=== PATIENT | male | born 1960 | race Caucasian/White ===

== ENCOUNTER 2019-07-25 21:11 | Inpatient (IN) | payer SELFPAY ==
[2019-07-25] MEDS ORDERED: FUROSEMIDE 40 MG/4 ML VIAL ONE (22:08)
[2019-07-25 22:35] LABS: Absolute Lymphocytes (CBC) 2.2 K/uL (0.7-4.9); Basophils % 0.8 % (0-1.3); Hematocrit 45.1 % (39.6-49.0); MPV 8.5 fL (7.6-11.3); RBC Red Blood Cell Count 4.54 M/uL (4.33-5.43)
[2019-07-25 22:54] LABS: BUN Blood Urea Nitrogen 4 mg/dL (7-18); Bicarbonate 28 mmol/L (21-32); Glucose Level 93 mg/dL (74-106); NT PRO-BNP 368 pg/mL (<125); Potassium 4.1 mmol/L (3.5-5.1); Sodium Level 134 mmol/L (136-145)
--- NOTE | 2019-07-25 23:29 | EDPHYS ---
Physician Documentation [facility] Name: Cem Akhtar Jr Age: 59 yrs Sex: Male : 1960 Arrival Date: 07/25/2019 Time: 21:14 Bed 7 Private MD: ED Physician Abdulaziz Bar HPI: 07/24 21:50 This 59 yrs old Male presents to ER via Ambulatory with complaints of Leg rn Swelling, Feet Swelling, Drainage. 21:50 The patient presents with pain, swelling. The complaints affect the bilateral lower rn legs. Onset: The symptoms/episode began/occurred at an unknown time. Modifying factors: The symptoms are alleviated by nothing. the symptoms are aggravated by movement, weight bearing. Severity of symptoms: At their worst the symptoms were moderate, in the emergency department the symptoms are unchanged. The patient has experienced similar episodes in the past. Reports knows has CHF and afib, unable to take medication for months, no fever, swelling has gotten bad to where he cannot walk, is weeping now. No sob. . Historical: - Allergies: 21:32 PENICILLINS; ll1 - PMHx: 21:32 Hypertension; CHF; Atrial Fib; ll1 - Immunization history:: Adult Immunizations unknown. - Social history:: Smoking status: Patient denies any tobacco usage or history of. Patient uses alcohol, occasionally. only on a social basis. Patient/guardian denies using street drugs. - Family history:: not pertinent. - Hospitalizations: : No recent hospitalization is reported. ROS: 21:50 Constitutional: Negative for fever, chills, and weight loss, Eyes: Negative for injury, rn pain, redness, and discharge, Neck: Negative for injury, pain, and swelling, Cardiovascular: Negative for chest pain, palpitations, and edema, Respiratory: Negative for shortness of breath, cough, wheezing, and pleuritic chest pain, Abdomen/GI: Negative for abdominal pain, nausea, vomiting, diarrhea, and constipation, MS/Extremity: + leg swelling Skin: + drainage of leg wounds Neuro: Negative for headache, weakness, numbness, tingling, and seizure. Exam: 21:50 Constitutional: Overweight male, ambulatory, seems uncomfortable Head/Face: rn Normocephalic, atraumatic. Cardiovascular: Irregular rhythm, regular rate. Respiratory: No increased work of breathing, no retractions or nasal flaring. Abdomen/GI: soft, non-tender Skin: Warm, 3+ pitting edema bilateral lower ext, with clear transudative fluid MS/ Extremity: Pulses equal, no cyanosis. + equal and intact distal pulses Neuro: Awake and alert, GCS 15, oriented to person, place, time, and situation. Cranial nerves II-XII grossly intact. Motor strength 5/5 in all extremities. Sensory grossly intact. Cerebellar exam normal. Normal gait. 21:56 ECG was reviewed by the Attending Physician. rn Vital Signs: 21:31 BP 123 / 78; Pulse 88; Resp 19; Temp 97.8; Pulse Ox 99% ; Pain 10/10; ll1 22:09 BP 143 / 79; Pulse 79; Resp 15 S; Pulse Ox 98% on R/A; jd3 23:06 BP 110 / 57; Pulse 74; Resp 18 S; Pulse Ox 98% on R/A; jd3 07/25 00:10 BP 114 / 75; Pulse 97; Resp 18 S; Pulse Ox 99% on R/A; jd3 01:01 BP 101 / 64; Pulse 89; Resp 16 S; Pulse Ox 97% on R/A; jd3 MDM: 07/24 21:26 Patient medically screened. rn 23:26 Differential diagnosis: lymphedema, CHF. 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 Test interpretation: by ED physician or midlevel provider: plain radiologic studies, CXR with mild pulmonary edema. Counseling: I had a detailed discussion with the patient and/or guardian regarding: the historical points, exam findings, and any diagnostic results supporting the discharge/admit diagnosis, lab results, radiology results, the need for further work-up and treatment in the hospital. Response to treatment: There is no appreciated change of the patient's symptoms at this time. Admission orders: after a detailed discussion of the patient's condition and case, the admit orders are written by me. ED course: Pt admitted for CHF exacerbation, severe peripheral edema, unable to get medication at home. . 07/24 21:34 Order name: CBC with Diff; Complete Time: 23:02 rn 07/24 21:34 Order name: Basic Metabolic Panel; Complete Time: 23:02 rn 07/24 21:34 Order name: BNP; Complete Time: 23:02 rn 07/24 21:34 Order name: XRAY Chest (1 view) rn 07/24 21:35 Order name: Procalcitonin; Complete Time: 23:49 rn 07/24 21:34 Order name: IV Start; Complete Time: 22:26 rn 07/24 21:34 Order name: EKG; Complete Time: 21:36 rn 07/24 21:34 Order name: EKG - Nurse/Tech; Complete Time: 21:41 rn 07/25 01:22 Order name: EKG - Nurse/Tech; Complete Time: 01:22 sg EC:56 Rate is 87 beats/min. Rhythm is irregularly irregular. Left axis deviation noted. QRS rn is positive in lead I and negative in lead aVF. QRS interval is normal. QT interval is normal. No Q waves. T waves are Normal. No ST changes noted. Clinical impression: Atrial Fibrillation. Interpreted by me. Reviewed by me. Administered Medications: 22:37 Drug: Lasix 40 mg Route: IVP; Site: left antecubital; jd3 23:30 Follow up: Response: No adverse reaction jd3 Disposition: 07/25/19 23:28 Hospitalization ordered by John Oseguera for Inpatient Admission. Preliminary diagnosis are Unspecified combined systolic (congestive) and diastolic (congestive) heart failure, Edema, unspecified. - Bed requested for Telemetry/MedSurg (Inpatient). - Status is Inpatient Admission. jd3 - Condition is Stable. - Problem is an ongoing problem. - Symptoms are unchanged. Signatures: Dispatcher [employer] EDMS Augustine Bailey RN Abdulaziz Sanders MD MD rn Garcia, Cindy, RN RN cg Davies, Jonathon, RN RN jd3 Lewis, Lynsay, RN RN ll1 Corrections: (The following items were deleted from the chart) 07/25 00:52 07/24 23:28 Hospitalization Ordered by John Oseguera for Inpatient Admission. [place] Preliminary diagnosis is Unspecified combined systolic (congestive) and diastolic (congestive) heart failure; Edema, unspecified. Bed requested for Telemetry/MedSurg (Inpatient). Status is Inpatient Admission. Condition is Stable. Problem is an ongoing problem. Symptoms are unchanged. rn 07/25 01:26 00:52 07/25/2019 23:28 Hospitalization Ordered by John Oseguera for Inpatient jd3 Admission. Preliminary diagnosis is Unspecified combined systolic (congestive) and diastolic (congestive) heart failure; Edema, unspecified. Bed requested for Telemetry/MedSurg (Inpatient). Status is Inpatient Admission. Condition is Stable. Problem is an ongoing problem. Symptoms are unchanged. cg
--- NOTE | 2019-07-25 23:29 | ER ---
Nurse's Notes [facility] Name: Cem Akhtar Jr Age: 59 yrs Sex: Male : 1960 Arrival Date: 07/25/2019 Time: 21:14 Bed 7 Private MD: Diagnosis: Unspecified combined systolic (congestive) and diastolic (congestive) heart failure;Edema, unspecified Presentation: 07/24 21:31 Chief complaint: Patient states: Bilateral leg swelling and pain for 1 month. Out of ll1 all meds for 3 months, including CHF, heart, and blood thinner meds. Denies SOB/fever. Coronavirus screen: Proceed with normal triage. Patient denies a cough. Patient denies shortness of breath or difficulty breathing. Patient denies measured and/or subjective temperature greater than 100.4F prior to today's visit. Patient denies travel on a cruise ship or to a country the [facility] currently lists as an affected area. Patient denies contact with known and/or suspected case of COVID-19. Ebola Screen: Patient denies travel to an Ebola-affected area in the 21 days before illness onset. Initial Sepsis Screen: Does the patient meet any 2 criteria? No. Patient's initial sepsis screen is negative. Risk Assessment: Do you want to hurt yourself or someone else? Patient reports no desire to harm self or others. Onset of symptoms was June 23, 2019. 21:31 Method Of Arrival: Ambulatory ll1 21:31 Acuity: NOA 3 ll1 22:09 Initial Sepsis Screen: Does the patient have a suspected source of infection? No. jd3 Patient's initial sepsis screen is negative. Historical: - Allergies: 21:32 PENICILLINS; ll1 - PMHx: 21:32 Hypertension; CHF; Atrial Fib; ll1 - Immunization history:: Adult Immunizations unknown. - Social history:: Smoking status: Patient denies any tobacco usage or history of. Patient uses alcohol, occasionally. only on a social basis. Patient/guardian denies using street drugs. - Family history:: not pertinent. - Hospitalizations: : No recent hospitalization is reported. Screenin:09 Abuse screen: Denies threats or abuse. Nutritional screening: No deficits noted. jd3 Tuberculosis screening: No symptoms or risk factors identified. Fall Risk Ambulatory Aid- None/Bed Rest/Nurse Assist (0 pts). Gait- Normal/Bed Rest/Wheelchair (0 pts) Mental Status- Oriented to own ability (0 pts). Total Hernández Fall Scale indicates No Risk (0-24 pts). Assessment: 22:07 General: Appears in no apparent distress. uncomfortable, Behavior is calm, cooperative, jd3 appropriate for age. Pain: Complains of pain in right leg and left leg Quality of pain is described as sharp, stabbing. Neuro: Level of Consciousness is awake, alert, obeys commands, Oriented to person, place, time, situation. Cardiovascular: Denies chest pain, Heart tones present Capillary refill < 3 seconds Patient's skin is warm and dry. Rhythm is irregular. Respiratory: Airway is patent Respiratory effort is even, unlabored, Respiratory pattern is regular, symmetrical, Breath sounds are clear bilaterally. Denies cough, shortness of breath. GI: No signs and/or symptoms were reported involving the gastrointestinal system. : No signs and/or symptoms were reported regarding the genitourinary system. EENT: No signs and/or symptoms were reported regarding the EENT system. Derm: Skin is intact, Skin is dry, Skin is normal, Skin temperature is warm redness and swelling noted to MARCIE lower legs and feet. Musculoskeletal: Circulation, motion, and sensation intact. Range of motion: intact in all extremities, Swelling present in right foot, left foot, right leg and left leg. 23:06 Reassessment: Patient appears in no apparent distress at this time. No changes from jd3 previously documented assessment. Patient and/or family updated on plan of care and expected duration. Pain level reassessed. Patient is alert, oriented x 3, equal unlabored respirations, skin warm/dry/pink. 07/25 00:10 Reassessment: Patient appears in no apparent distress at this time. Patient and/or jd3 family updated on plan of care and expected duration. Pain level reassessed. Patient is alert, oriented x 3, equal unlabored respirations, skin warm/dry/pink. awaiting admission. 01:00 Reassessment: Patient appears in no apparent distress at this time. Patient and/or jd3 family updated on plan of care and expected duration. Pain level reassessed. Patient is alert, oriented x 3, equal unlabored respirations, skin warm/dry/pink. Vital Signs: 07/24 21:31 BP 123 / 78; Pulse 88; Resp 19; Temp 97.8; Pulse Ox 99% ; Pain 10/10; ll1 22:09 BP 143 / 79; Pulse 79; Resp 15 S; Pulse Ox 98% on R/A; jd3 23:06 BP 110 / 57; Pulse 74; Resp 18 S; Pulse Ox 98% on R/A; jd3 07/25 00:10 BP 114 / 75; Pulse 97; Resp 18 S; Pulse Ox 99% on R/A; jd3 01:01 BP 101 / 64; Pulse 89; Resp 16 S; Pulse Ox 97% on R/A; jd3 ED Course: 07/24 21:14 Patient arrived in ED. cf2 21:26 Abdulaziz Bar MD is Attending Physician. rn 21:32 Triage completed. ll1 21:33 Arm band placed on Patient placed in an exam room, on a stretcher. ll1 21:39 Rosendo Sepulveda RN is Primary Nurse. jd3 22:09 Patient has correct armband on for positive identification. Bed in low position. Call jd3 light in reach. Side rails up X 1. hall monitor on. Pulse ox on. NIBP on. 22:23 XRAY Chest (1 view) In Process Unspecified. EDMS 22:28 Inserted saline lock: 20 gauge in left antecubital area, using aseptic technique. Blood oe collected. 23:27 John Oseguera is Hospitalizing Provider. rn 07/25 01:12 No provider procedures requiring assistance completed. Patient admitted, IV remains in jd3 place. Administered Medications: 07/24 22:37 Drug: Lasix 40 mg Route: IVP; Site: left antecubital; jd3 23:30 Follow up: Response: No adverse reaction jd3 Output: 23:04 Urine: 1000ml (Voided); Total: 1000ml. jb4 Outcome: 23:28 Decision to Hospitalize by Provider. rn 07/25 01:12 Admitted to Med/surg accompanied by tech, via stretcher, room 209, with chart, Report jd3 called to Lizett PINA Condition: stable Instructed on the need for admit, Demonstrated understanding of instructions. 01:26 Patient left the ED. jd3 Signatures: Dispatcher [employer] EDMS Abdulaziz Bar MD MD rn Bryson, James, RN RN jb4 Philip López Jonathon, RN RN jd3 Nia Yousif cf2 Janeth Grant, RN RN ll1
--- NOTE | 2019-07-26 00:37 | P.HP ---
Certification for Inpatient Patient admitted to: Observation With expected LOS: <2 Midnights Practitioner: I am a practitioner with admitting privileges, knowledge of patient current condition, hospital course, and medical plan of care. Services: Services provided to patient in accordance with Admission requirements found in Title 42 Section 412.3 of the Code of Federal Regulations Patient History Date of Service: 07/26/19 Reason for admission: Bilateral lower extremity swelling History of Present Illness: 59-year-old gentleman with a history of atrial fibrillation, chronic leg edema presented emergency department with significant bilateral lower extremity swelling. Patient reports not taking his Lasix for about 4 years due to inability to afford his medications and lack of insurance. He has not seen any physicians for about 4 years now. He denied any shortness of breath or cough. He reports calf pain and difficulty ambulating due to the leg swellings. He denied any history of DVT. He denied any history of heart failure. He stated he moved here recently to get a job and he lives in his truck. Blood work in the ED is unremarkable it. Chest x-ray shows no CHF pattern. Patient is hospitalized for IV Lasix therapy. Allergies Penicillins Allergy (Severe, Verified 07/26/19 02:29) Anaphylaxis Home Medications: Furosemide 1 tab PO DAILY 07/26/19 Lisinopril [Zestril] 1 tab PO DAILY 07/26/19 Metoprolol Tartrate 1 tab PO BID 07/26/19 Potassium Chloride 1 tab PO BID 07/26/19 - Past Medical/Surgical History -: Atrial fibrillation -: Bilateral leg edema -: Ear surgery - Family History Family History: Reviewed- Non-Contributory (Patient was adopted) - Family History Father -: Heart disease - Social History Smoking Status: Never smoker Alcohol use: Yes CD- Drugs: No Review of Systems Other: Except as documented, all other systems reviewed and negative. Physical Examination - Physical Exam General: Alert, In no apparent distress, Oriented x3 HEENT: PERRLA, Mucous membr. moist/pink, EOMI, Sclerae nonicteric Neck: Supple, JVD not distended Respiratory: Clear to auscultation bilaterally, Normal air movement Cardiovascular: Normal S1 S2, Edema (Bilateral lower extremity), Irregular heart rate/rhythm Capillary refill: <2 Seconds Gastrointestinal: Normal bowel sounds, Soft and benign, Non-distended, No tenderness Musculoskeletal: Swelling (Bilateral legs) Integumentary: Erythema (Bilateral lower extremities) Neurological: Normal speech, Normal strength at 5/5 x4 extr - Studies Laboratory Data (last 24 hrs) 07/25/19 22:23: Sodium 134 L, Potassium 4.1, BUN 4 L, Creatinine 0.80, Glucose 93 07/25/19 22:23: WBC 7.0, Hgb 15.2, Hct 45.1, Plt Count 221 Assessment and Plan - Problems (Diagnosis) (1) Lymphedema of both lower extremities Current Visit: Yes Status: Acute (2) Edema of both lower extremities Current Visit: Yes Status: Acute (3) Chronic atrial fibrillation Current Visit: Yes Status: Acute - Plan Place under observation. Start IV Lasix Monitor intake and output Obtain venous Doppler of bilateral lower extremities to rule out DVT. Obtain echocardiogram. Patient may need lymphedema treatment as an outpatient. - Advance Directives Does patient have a Living Will: No Does patient have a Durable POA for Healthcare: No
[2019-07-26 01:35] VITALS: O2SAT 97
[2019-07-26 03:39] LABS: Urine Appearance CLEAR; Urine Bilirubin NEGATIVE (NEG); Urine Blood NEGATIVE (NEG); Urine Color YELLOW; Urine Glucose NEGATIVE (NEG); Urine Protein NEGATIVE (NEG); Urine Specific Gravity <=1.005 (1.005-1.030); Urine Urobilinogen 0.2 mg/dL (0.2-1.0)
[2019-07-26 03:40] LABS: Urine Microscopic Reflex NO UMIC
--- NOTE | 2019-07-26 07:48 | RAD REPORT ---
EXAM DESCRIPTION: Akhil Single View07/25/2019 10:21 pm CLINICAL HISTORY: Shortness breath COMPARISON: none FINDINGS: Minimal bilateral pulmonary opacities probably minimal interstitial pulmonary edema Heart is borderline enlarged
[2019-07-26] MEDS: FUROSEMIDE 40 MG/4 ML VIAL IV SCH ×2 (08:07→16:31)
[2019-07-26] MEDS: ENOXAPARIN 40 MG/0.4 ML SQ SCH (08:07)
--- NOTE | 2019-07-26 16:01 | RAD REPORT ---
EXAM DESCRIPTION: US - Extrem Venous W Compress Conner - 07/26/2019 3:57 pm CLINICAL HISTORY: Bilateral leg swelling COMPARISON: None. TECHNIQUE: Real-time sonographic evaluation of the bilateral lower extremity common femoral, superfi cial femoral, popliteal and posterior tibial veins was performed. FINDINGS: Normal compressibility, flow augmentation, phasic flow and spontaneous flow are identified in the left and right lower extremity common femoral, superficial femoral, popliteal and posterior t ibial veins. No intraluminal filling defects seen. IMPRESSION: No DVT in either lower extremity.
[2019-07-27 05:41] VITALS: BMI 34.1
[2019-07-27 06:33] LABS: BUN Blood Urea Nitrogen 8 mg/dL (7-18); Bicarbonate 29 mmol/L (21-32); Glucose Level 103 mg/dL (74-106); Phosphorus 3.2 mg/dL (2.5-4.9); Sodium Level 138 mmol/L (136-145)
[2019-07-27 06:43] LABS: Magnesium 1.7 mg/dL (1.8-2.4); Potassium 3.5 mmol/L (3.5-5.1)
--- NOTE | 2019-07-27 07:15 | P.DS ---
Admission Date: 07/26/19 Discharge Date: 07/27/19 Disposition: ROUTINE DISCHARGE Discharge Condition: FAIR Reason for Admission: Bilateral lower extremity swelling - Problems (1) Lymphedema of both lower extremities Current Visit: Yes Status: Acute (2) Edema of both lower extremities Current Visit: Yes Status: Acute (3) Chronic atrial fibrillation Current Visit: Yes Status: Acute Brief History of Present Illness: 59-year-old gentleman with a history of atrial fibrillation, chronic leg edema presented emergency department with significant bilateral lower extremity swelling. Patient reports not taking his Lasix for about 4 years due to inability to afford his medications and lack of insurance. He has not seen any physicians for about 4 years now. He denied any shortness of breath or cough. He reports calf pain and difficulty ambulating due to the leg swellings. He denied any history of DVT. He denied any history of heart failure. He stated he moved here recently to get a job and he lives in his truck. Blood work in the ED is unremarkable it. Chest x-ray shows no CHF pattern. Patient is hospitalized for IV Lasix therapy. Hospital Course: Patient admitted to the medical floor and treated with IV Lasix for bilateral leg edema. Venous Doppler of the lower extremities done was negative for DVT in both legs. Patient's edema improved significantly with IV Lasix. He is informed he needs to follow up with a physician to prescribe his Lasix as an outpatient. Patient is discharged with oral Lasix 40 mg daily. His other home medications are resumed on discharge. Vital Signs/Physical Exam: Temp Pulse Resp BP Pulse Ox 96.8 F 66 12 116/62 98 07/27/19 04:00 07/27/19 04:00 07/27/19 04:00 07/27/19 04:00 07/27/19 04:00 General: Alert, In no apparent distress HEENT: Mucous membr. moist/pink Neck: Supple, JVD not distended Respiratory: Clear to auscultation bilaterally, Normal air movement Cardiovascular: Edema (Bilateral lower extremity edema significantly improved.) Gastrointestinal: Normal bowel sounds, Soft and benign, No tenderness Musculoskeletal: No swelling Neurological: Normal speech, Normal strength at 5/5 x4 extr Laboratory Data at Discharge: WBC 7.0 K/uL (4.3-10.9) 07/25/19 22:23 Hgb 15.2 g/dL (13.6-17.9) 07/25/19 22:23 Hct 45.1 % (39.6-49.0) 07/25/19 22:23 Plt Count 221 K/uL (152-406) 07/25/19 22:23 Sodium 138 mmol/L (136-145) 07/27/19 05:09 Potassium 3.5 mmol/L (3.5-5.1) 07/27/19 05:09 BUN 8 mg/dL (7-18) 07/27/19 05:09 Creatinine 0.74 mg/dL (0.55-1.3) 07/27/19 05:09 Glucose 103 mg/dL (74-106) 07/27/19 05:09 Phosphorus 3.2 mg/dL (2.5-4.9) 07/27/19 05:09 Magnesium 1.7 mg/dL (1.8-2.4) L 07/27/19 05:09 Home Medications: Furosemide 1 tab PO DAILY #30 07/27/19 Lisinopril [Zestril] 1 tab PO DAILY #30 07/27/19 Potassium Chloride 1 tab PO BID #60 07/27/19 New Medications: Furosemide 1 tab PO DAILY #30 Potassium Chloride 1 tab PO BID #60 Lisinopril [Zestril] 1 tab PO DAILY #30 Patient Discharge Instructions: Patient informed to find PCP to manage his leg edema as outpatient. Diet: AHA Activity: Ad jovana
[2019-07-27 08:53] VITALS: BP 114/64; TEMP 97
[2019-07-27] MEDS ORDERED: POTASSIUM CL SA 10 MEQ TAB PO ONE (09:00)
[2019-07-27] MEDS: FUROSEMIDE 40 MG/4 ML VIAL IV SCH (09:07)
[2019-07-27] MEDS: ENOXAPARIN 40 MG/0.4 ML SQ SCH (09:07)
--- NOTE | 2019-07-29 08:55 | ECHO ---
HEIGHT: 5 ft 7 in WEIGHT: 218 lb 1 oz DATE OF STUDY: 07/26/[address]: soraya holliday 2-DIMENSIONAL: YES M.MODE: YES DOPPLER: YES COLOR FLOW: YES TDS: NO PORTABLE: NO DEFINITY: NO BUBBLE STUDY: NO DIAGNOSIS: EDEMA, CHRONIC ATRIAL FIBRILLATION CARDIAC HISTORY: CATHERIZATION: SURGERY: PROSTHETIC VALVE: PACEMAKER: MEASUREMENTS (cm) DIASTOLIC (NORMALS) SYSTOLIC (NORMALS) IVSd 1.0 (0.6-1.2) LA Diam 4.9 (1.9-4.0) LVEF 68% LVIDd 4.1 (3.5-5.7) LVIDs 2.6 (2.0-3.5) %FS 37% LVPWd 1.0 (0.6-1.2) Ao Diam 3.1 (2.0-3.7) 2 DIMENSIONAL ASSESSMENT: RIGHT ATRIUM: ENLARGED LEFT ATRIUM: ENLARGED RIGHT VENTRICLE: NORMAL LEFT VENTRICLE: NORMAL TRICUSPID VALVE: NORMAL MITRAL VALVE: NORMAL PULMONIC VALVE: NORMAL AORTIC VALVE: NORMAL PERICARDIAL EFFUSION: NONE AORTIC ROOT: NORMAL LEFT VENTRICULAR WALL MOTION: NORMAL DOPPLER/COLOR FLOW: COMMENTS: NORMAL LEFT VENTRICULAR EJECTION FRACTION 55-60% WITH NORMAL WALL MOTION. BI ATRIAL ENLARGEMENT. ATRIAL FIBRILLATION. TECHNOLOGIST: Wilber MCCLELLAN
== END 2019-07-27 12:49 | disposition home or self-care (01) | DRG 948 ==
LOC: ER 21:11 → 2ND 07-26 00:46 → OBSVTOIN 07-26 08:53
PROVIDERS: ADMIT Internal Medicine; ATTEND Internal Medicine
DX: R60.0 Localized edema (principal); I48.20 Chronic atrial fibrillation, unspecified; I89.0 Lymphedema, not elsewhere classified; I10 Essential (primary) hypertension; T50.1X6A Underdosing of loop [high-ceiling] diuretics, initial encounter; Z91.120 Patient's intentional underdosing of medication regimen due to financial hardship; Z88.0 Allergy status to penicillin; Z11.59 Encounter for screening for other viral diseases; Z79.899 Other long term (current) drug therapy
CPT/HCPCS: 36415; 71045; 80048; 81003; 83735; 83880; 84100; 84145; 84443; 85025; 93005; 93306; 93970; 96374; 99285; G0378; J1650; J1940; U0002